=== PATIENT | male | born 1975 | race Caucasian/White ===

== ENCOUNTER 2017-03-28 11:10 | Emergency (ER) | payer MEDICAID, OTHER ==
[~2017-03-28] VITALS: Ht 172.7 cm; Wt 70.0 kg
[~2017-03-28 11:10] MED LIST: GABAPENTIN
[2017-03-28 15:19] LABS: BASOPHILS % 1.1 % (0.0-2.0); EOSINOPHILS % 4.1 % (0.0-5.0); HEMATOCRIT. 37.2 % (42.0-52.0); HEMOGLOBIN. 12.5 g/dL (14.0-18.0); LYMPHOCYTES % 40.3 % (20.0-50.0); MEAN CORPUSCULAR HEMOGLOBIN 27.6 pg (28.0-32.0); MEAN PLATELET VOLUME 8.9 fl (7.4-10.4); MONOCYTES % 9.8 % (2.0-8.0); NEUTROPHILS % 44.7 % (40.0-76.0); PLATELET 171 x1000/uL (130-400); RED BLOOD CELL COUNT 4.53 mill/uL (4.7-6.1); RED CELL DISTRIBUTION WIDTH 15.2 % (11.6-14.6)
[2017-03-28 15:20] LABS: CARBON DIOXIDE 25 mEq/L (21-32); CHLORIDE 112 mEq/L (98-107); ETHANOL BLOOD 137 mg/dL
[2017-03-28 15:26] LABS: TROPONIN I < 0.02 ng/mL (0.00-0.04)
[2017-03-28] MEDS ORDERED: LORAZEPAM 1MG TABLET PO ONE (16:15)
[2017-03-28] MEDS: SODIUM CHLORIDE 0.9% 1,000 ML IV ONE ×2 (16:47→17:17)
[2017-03-28 17:00] VITALS: BP 126/77
== END 2017-03-28 18:02 | disposition home or self-care (01) ==
LOC: ER 11:11
DX: F41.0 Panic disorder [episodic paroxysmal anxiety] (principal); R55 Syncope and collapse; R03.0 Elevated blood-pressure reading, without diagnosis of hypertension; F10.10 Alcohol abuse, uncomplicated; Y90.6 Blood alcohol level of 120-199 mg/100 ml
CPT/HCPCS: 36415; 71010; 80048; 84484; 85025; 93005; 99285; G0482; J7030

== ENCOUNTER 2017-03-29 05:32 | Emergency (ER) | payer MEDICAID ==
[~2017-03-29] VITALS: Ht 172.7 cm; Wt 82.0 kg
[2017-03-29] MEDS ORDERED: LORAZEPAM 0.5MG TABLET PO ONE (06:45)
[2017-03-29 07:05] LABS: BASOPHILS % 1.9 % (0.0-2.0); HEMATOCRIT. 39.3 % (42.0-52.0); HEMOGLOBIN. 13.2 g/dL (14.0-18.0); LYMPHOCYTES % 39.8 % (20.0-50.0); MEAN CORPUSCULAR HEMOGLOBIN 27.3 pg (28.0-32.0); MEAN CORPUSCULAR VOLUME 81.4 fL (80.0-94.0); MEAN PLATELET VOLUME 8.3 fl (7.4-10.4); MONOCYTES % 9.3 % (2.0-8.0); PLATELET 149 x1000/uL (130-400); RED BLOOD CELL COUNT 4.82 mill/uL (4.7-6.1); RED CELL DISTRIBUTION WIDTH 15.6 % (11.6-14.6)
[2017-03-29 07:19] LABS: CARBON DIOXIDE 30 mEq/L (21-32); ETHANOL BLOOD 37 mg/dL
[2017-03-29 07:21] LABS: CHLORIDE 107 mEq/L (98-107)
[2017-03-29 10:13] LABS: CLARITY URINE CLEAR (CLEAR); COLOR URINE YELLOW (YELLOW); GLUCOSE URINE NEGATIVE (NEGATIVE); KETONES URINE NEGATIVE (NEGATIVE); LEUKOCYTE ESTERASE URINE NEGATIVE (NEGATIVE); NITRITE URINE NEGATIVE (NEGATIVE); OCCULT BLOOD URINE NEGATIVE (NEGATIVE); PH URINE 7.5 (4.5-8.0); PROTEIN URINE NEGATIVE (NEGATIVE); SPECIFIC GRAVITY URINE 1.019 (1.005-1.030); UROBILINOGEN URINE 0.2 E.U./dL (0.2-1.0)
[2017-03-29 10:46] LABS: *AMPHETAMINES SCREEN URINE NEGATIVE (NEGATIVE); *BARBITURATES SCREEN URINE NEGATIVE (NEGATIVE); *BENZODIAZEPINES SCREEN URINE NEGATIVE (NEGATIVE); *COCAINE SCREEN URINE NEGATIVE (NEGATIVE); CANNABINOID URINE SCREEN NEGATIVE (NEGATIVE); METHADONE URINE SCREEN NEGATIVE (NEGATIVE); OPIATES URINE SCREEN NEGATIVE (NEGATIVE); PHENCYCLIDINE URINE SCREEN NEGATIVE (NEGATIVE)
[2017-03-29] MEDS ORDERED: LORAZEPAM 1MG TABLET PO ONE (14:15)
[2017-03-30 09:30] VITALS: BP 118/76
== END 2017-03-30 10:20 | disposition home or self-care (01) ==
LOC: ER 05:33
DX: R45.851 Suicidal ideations (principal); F20.9 Schizophrenia, unspecified; F17.200 Nicotine dependence, unspecified, uncomplicated; Z91.5 Personal history of self-harm
CPT/HCPCS: 36415; 80053; 80305; 80307; 80329; 81003; 85025; 99285; G0482

== ENCOUNTER 2018-03-16 00:58 | Emergency (ER) | payer MEDICAID, OTHER ==
[~2018-03-16] VITALS: Ht 172.7 cm; Wt 71.0 kg
[2018-03-16 01:02] VITALS: BP 140/102
== END 2018-03-16 05:02 | disposition left against medical advice (07) ==
LOC: ER 00:58
DX: F41.9 Anxiety disorder, unspecified (principal); Z53.21 Procedure and treatment not carried out due to patient leaving prior to being seen by health care provider

== ENCOUNTER 2018-03-18 17:07 | Emergency (ER) | payer MEDICAID ==
[~2018-03-18] VITALS: Ht 172.7 cm; Wt 65.0 kg
[2018-03-18 17:13] VITALS: BP 107/60
== END 2018-03-18 19:30 | disposition left against medical advice (07) ==
LOC: ER 17:17
DX: R11.0 Nausea (principal)
CPT/HCPCS: 99283

== ENCOUNTER 2018-04-10 14:05 | Emergency (ER) | payer MEDICAID ==
[~2018-04-10] VITALS: Ht 175.3 cm; Wt 80.0 kg
[2018-04-10 14:08] VITALS: BP 110/62
[2018-04-10 15:24] LABS: CHLORIDE 110 mEq/L (98-107)
[2018-04-10 15:26] LABS: BASOPHILS % 0.6 % (0.0-2.0); HEMATOCRIT. 38.4 % (42.0-52.0); LYMPHOCYTES % 42.6 % (20.0-50.0); MEAN CORPUSCULAR HEMOGLOBIN 27.7 pg (28.0-32.0); MEAN CORPUSCULAR VOLUME 81.5 fL (80.0-94.0); MEAN PLATELET VOLUME 8.1 fl (7.4-10.4); MONOCYTES % 7.1 % (2.0-8.0); NEUTROPHILS % 47.7 % (40.0-76.0); PLATELET 215 x1000/uL (130-400); RED BLOOD CELL COUNT 4.71 mill/uL (4.7-6.1); RED CELL DISTRIBUTION WIDTH 15.4 % (11.6-14.6)
[2018-04-10 15:43] LABS: ETHANOL BLOOD 306 mg/dL
== END 2018-04-10 15:45 | disposition left against medical advice (07) ==
LOC: ER 14:05
DX: T50.991A Poisoning by other drugs, medicaments and biological substances, accidental (unintentional), initial encounter (principal); Y92.89 Other specified places as the place of occurrence of the external cause; Z53.21 Procedure and treatment not carried out due to patient leaving prior to being seen by health care provider
CPT/HCPCS: 36415; 80053; 85025; G0482

== ENCOUNTER 2018-04-12 10:48 | Emergency (ER) | payer MEDICAID ==
[~2018-04-12] VITALS: Ht 162.6 cm; Wt 56.0 kg
[2018-04-12 10:54] VITALS: BP 146/90
== END 2018-04-12 11:00 | disposition left against medical advice (07) ==
LOC: ER 10:48
DX: F10.129 Alcohol abuse with intoxication, unspecified (principal); Y90.9 Presence of alcohol in blood, level not specified; I10 Essential (primary) hypertension
CPT/HCPCS: 99283

== ENCOUNTER 2018-04-12 16:36 | Emergency (ER) | payer MEDICAID ==
[~2018-04-12] VITALS: Ht 172.7 cm; Wt 78.0 kg
[2018-04-12 16:38] VITALS: BP 140/88
== END 2018-04-12 19:00 | disposition left against medical advice (07) ==
LOC: ER 16:36
DX: R45.851 Suicidal ideations (principal); Z53.21 Procedure and treatment not carried out due to patient leaving prior to being seen by health care provider

== ENCOUNTER 2019-08-15 00:53 | Emergency (ER) | payer MEDICAID ==
[~2019-08-15] VITALS: Ht 172.7 cm; Wt 76.3 kg
[2019-08-15] MEDS ORDERED: CLONIDINE 0.1MG TABLET PO ONE (01:45)
[2019-08-15] MEDS ORDERED: LORAZEPAM 1MG TABLET PO ONE (01:45)
[2019-08-15] MEDS ORDERED: ONDANSETRON 4MG ODT PO ONE (03:45)
[2019-08-15 04:01] VITALS: BP 136/75
== END 2019-08-15 04:01 | disposition home or self-care (01) ==
LOC: ER 00:53
DX: F15.10 Other stimulant abuse, uncomplicated (principal); F41.9 Anxiety disorder, unspecified; R56.9 Unspecified convulsions; F20.9 Schizophrenia, unspecified; F17.200 Nicotine dependence, unspecified, uncomplicated
CPT/HCPCS: 99284; Q0162

== ENCOUNTER 2019-11-04 18:31 | Emergency (ER) | payer OTHER ==
[~2019-11-04] VITALS: Ht 172.7 cm; Wt 72.7 kg
[2019-11-04] MEDS ORDERED: GABA400C PO (18:58)
[2019-11-04] MEDS ORDERED: LORAZEPAM 1MG TABLET PO ONE (21:45)
[2019-11-04] MEDS ORDERED: ONDANSETRON HCL 4MG/2ML INJ IV ONE (21:45)
[2019-11-04] MEDS ORDERED: FOLIC ACID 1 MG, THIAMINE HCL 100 MG, MVI, ADULT NO.1 10 ML in DEXTROSE 5% WATER 1,000 ML IV ONE ×4 (21:45)
[2019-11-04 23:48] LABS: CHLORIDE 109 mEq/L (98-107)
[2019-11-04 23:49] LABS: BASOPHILS % 1.2 % (0.0-2.0); EOSINOPHILS % 2.3 % (0.0-5.0); HEMOGLOBIN. 13.9 g/dL (14.0-18.0); LYMPHOCYTES % 34.6 % (20.0-50.0); MEAN CORPUSCULAR HEMOGLOBIN 26.4 pg (28.0-32.0); MEAN CORPUSCULAR VOLUME 79.7 fL (80.0-94.0); MEAN PLATELET VOLUME 8.5 fl (7.4-10.4); MONOCYTES % 8.5 % (2.0-8.0); NEUTROPHILS % 53.4 % (40.0-76.0); PLATELET 191 x1000/uL (130-400); RED BLOOD CELL COUNT 5.27 mill/uL (4.7-6.1); RED CELL DISTRIBUTION WIDTH 17.7 % (11.6-14.6)
[2019-11-04 23:53] LABS: ETHANOL BLOOD 36 mg/dL
[2019-11-05 09:50] VITALS: BP 130/80
== END 2019-11-05 09:51 | disposition home or self-care (01) ==
LOC: ER 18:31
DX: F10.239 Alcohol dependence with withdrawal, unspecified (principal); Y90.1 Blood alcohol level of 20-39 mg/100 ml; R55 Syncope and collapse; R11.0 Nausea; M25.532 Pain in left wrist; F15.10 Other stimulant abuse, uncomplicated; F20.9 Schizophrenia, unspecified; G40.909 Epilepsy, unspecified, not intractable, without status epilepticus; Z79.899 Other long term (current) drug therapy
CPT/HCPCS: 36415; 73110; 80048; 80320; 82962; 85025; 93005; 96365; 96366; 96375; 99284; J2405; J3411; J3490; J7070; Z7610; G0480

== ENCOUNTER 2019-11-05 10:01 | Emergency (ER) | payer OTHER ==
[~2019-11-05] VITALS: Ht 172.7 cm; Wt 73.0 kg
[~2019-11-05 10:01] MED LIST changes: +GABA400C PO
[2019-11-05] MEDS ORDERED: LORAZEPAM 1MG TABLET PO ONE (12:45)
[2019-11-05] MEDS ORDERED: IBUPROFEN 600MG TABLET PO ONE (12:45)
[2019-11-05 12:52] VITALS: BP 124/96
== END 2019-11-05 13:34 | disposition left against medical advice (07) ==
LOC: ER 10:01
DX: F41.9 Anxiety disorder, unspecified (principal); F10.20 Alcohol dependence, uncomplicated; F20.9 Schizophrenia, unspecified; F15.10 Other stimulant abuse, uncomplicated; Y90.9 Presence of alcohol in blood, level not specified
CPT/HCPCS: 99283

== ENCOUNTER 2020-07-15 01:13 | Emergency (ER) | payer MEDICAID, OTHER ==
[~2020-07-15] VITALS: Ht 172.7 cm; Wt 70.1 kg
[~2020-07-15 01:13] MED LIST changes: -GABAPENTIN
[2020-07-15] MEDS ORDERED: CHLORDIAZEPOXIDE 25MG CAPSULE PO ONE (02:15)
[2020-07-15 02:59] LABS: BASOPHILS % 1.3 % (0.0-2.0); EOSINOPHILS % 3.8 % (0.0-5.0); HEMATOCRIT. 35.9 % (42.0-52.0); HEMOGLOBIN. 12.3 g/dL (14.0-18.0); LYMPHOCYTES % 35.3 % (20.0-50.0); MEAN CORPUSCULAR HEMOGLOBIN 28.2 pg (28.0-32.0); MEAN CORPUSCULAR VOLUME 82.3 fL (80.0-94.0); MEAN PLATELET VOLUME 8.6 fl (7.4-10.4); MONOCYTES % 8.5 % (2.0-8.0); NEUTROPHILS % 51.1 % (40.0-76.0); PLATELET 213 x1000/uL (130-400); RED BLOOD CELL COUNT 4.37 mill/uL (4.7-6.1); RED CELL DISTRIBUTION WIDTH 15.3 % (11.6-14.6)
[2020-07-15 03:03] LABS: CHLORIDE 107 mEq/L (98-107)
[2020-07-15 03:08] LABS: ETHANOL BLOOD 105 mg/dL
[2020-07-15 04:30] VITALS: BP 119/85
[2020-07-15] MEDS ORDERED: ONDANSETRON HCL 4MG TABLET PO ONE (04:30)
[2020-07-15] MEDS ORDERED: ACETAMINOPHEN 500MG TABLET PO ONE (04:30)
[2020-07-15 05:30] LABS: CLARITY URINE CLEAR (CLEAR); COLOR URINE DARK YELLOW (YELLOW); KETONES URINE NEGATIVE (NEGATIVE); LEUKOCYTE ESTERASE URINE NEGATIVE (NEGATIVE); NITRITE URINE NEGATIVE (NEGATIVE); OCCULT BLOOD URINE NEGATIVE (NEGATIVE); PROTEIN URINE TRACE (NEGATIVE); SPECIFIC GRAVITY URINE 1.038 (1.005-1.030)
[2020-07-15 05:42] LABS: *COCAINE SCREEN URINE NEGATIVE (NEGATIVE); METHADONE URINE SCREEN NEGATIVE (NEGATIVE); OPIATES URINE SCREEN NEGATIVE (NEGATIVE); PHENCYCLIDINE URINE SCREEN NEGATIVE (NEGATIVE)
[2020-07-15 05:43] LABS: *AMPHETAMINES SCREEN URINE PRESUMTIVE POSITIVE (NEGATIVE); *BARBITURATES SCREEN URINE NEGATIVE (NEGATIVE); *BENZODIAZEPINES SCREEN URINE NEGATIVE (NEGATIVE); CANNABINOID URINE SCREEN NEGATIVE (NEGATIVE)
== END 2020-07-15 04:37 | disposition home or self-care (01) ==
LOC: ER 01:13
DX: F10.239 Alcohol dependence with withdrawal, unspecified (principal); Y90.5 Blood alcohol level of 100-119 mg/100 ml; T51.0X1A Toxic effect of ethanol, accidental (unintentional), initial encounter; F20.9 Schizophrenia, unspecified; R56.9 Unspecified convulsions; Z86.19 Personal history of other infectious and parasitic diseases
CPT/HCPCS: 36415; 80053; 80305; 80307; 80320; 80329; 81003; 85025; 93005; 99284; Q0162; G0480

== ENCOUNTER 2020-10-30 22:54 | Emergency (ER) | payer MEDICAID, OTHER ==
[~2020-10-30] VITALS: Ht 172.7 cm; Wt 77.0 kg
[2020-10-31] MEDS ORDERED: LORAZEPAM 1MG TABLET PO ONE (01:15)
[2020-10-31 03:00] VITALS: BP 124/81
== END 2020-10-31 03:02 | disposition left against medical advice (07) ==
LOC: ER 22:54
DX: R20.0 Anesthesia of skin (principal); R53.1 Weakness; R51.9 Headache, unspecified; R07.89 Other chest pain; F15.180 Other stimulant abuse with stimulant-induced anxiety disorder; I69.354 Hemiplegia and hemiparesis following cerebral infarction affecting left non-dominant side; F10.10 Alcohol abuse, uncomplicated; Y90.9 Presence of alcohol in blood, level not specified
CPT/HCPCS: 71045; 99284